=== PATIENT | female | born 1980 | race Hispanic/Latino ===

== ENCOUNTER 2020-02-16 15:23 | Emergency (ER) | payer MEDICAID, OTHER, SELFPAY ==
[2020-02-17 17:40] LABS: SARS-CoV-2 MS2 Positive; SARS-CoV-2 N Gene Positive; SARS-CoV-2 S Gene Positive; SARS-CoV-2 orf1ab Positive
== END 2020-02-16 16:10 | disposition home or self-care (01) ==
LOC: NAV ERS 15:23
DX: J06.9 Acute upper respiratory infection, unspecified (principal); I10 Essential (primary) hypertension
CPT/HCPCS: 87635; 99283; U0003